=== PATIENT | male | born 1950 | race Caucasian/White ===

== ENCOUNTER → 2024-01-17 09:37 | Outpatient (REF) | payer MEDICARE, BC, SELFPAY | LOC: RAD 09:37 | PROVIDERS: ATTENDING PHYSICIAN Family Medicine | DX: M79.672 Pain in left foot (principal) | CPT/HCPCS: 73630 ==

== ENCOUNTER → 2025-04-21 07:54 | Outpatient (REF) | payer MEDICARE, BC, SELFPAY | LOC: RAD 07:54 | PROVIDERS: ATTENDING PHYSICIAN Family Medicine | DX: M25.561 Pain in right knee (principal) | CPT/HCPCS: 73564 ==